=== PATIENT | male | born 1960 | race Caucasian/White ===

== ENCOUNTER 2017-05-23 19:55 | Emergency (ER) | payer OTHER ==
[2017-05-23 20:12] VITALS: PULSE 68; TEMP 98.1; BMI 27.9
[2017-05-23] MEDS ORDERED: IBUPROFEN 600 MG TABLET (FP) PO ONE ×2 (20:30→20:39)
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
[2017-05-23 20:43] VITALS: BP 159/74
== END 2017-05-23 20:46 | disposition home or self-care (01) ==
LOC: FER 19:55
DX: Z04.1 Encounter for examination and observation following transport accident (principal); V49.9XXA Car occupant (driver) (passenger) injured in unspecified traffic accident, initial encounter; Y93.89 Activity, other specified; Y92.410 Unspecified street and highway as the place of occurrence of the external cause; I10 Essential (primary) hypertension; E78.5 Hyperlipidemia, unspecified
CPT/HCPCS: 99283-25

== ENCOUNTER 2021-06-06 05:01 | Day surgery (SDC) | payer OTHER ==
[2021-06-01 15:29] VITALS: BMI 28.2
[2021-06-06 10:58] VITALS: TEMP 97.3
[2021-06-06 11:25] VITALS: BP 117/51; PULSE 46
== END 2021-06-06 11:43 | disposition home or self-care (01) ==
LOC: JASU-ENDO 05:01
PROVIDERS: ATTEND Internal Medicine Gastroenterology
PROC: 0DBL8ZX Excision of Transverse Colon, Via Natural or Artificial Opening Endoscopic, Diagnostic (ICD-10-PCS; principal; 2021-06-06 09:30)
DX: Z12.11 Encounter for screening for malignant neoplasm of colon (principal); D12.3 Benign neoplasm of transverse colon; K57.30 Diverticulosis of large intestine without perforation or abscess without bleeding; K64.8 Other hemorrhoids; I25.10 Atherosclerotic heart disease of native coronary artery without angina pectoris; I10 Essential (primary) hypertension; Z80.0 Family history of malignant neoplasm of digestive organs
CPT/HCPCS: 88305-TC

== ENCOUNTER 2022-03-19 19:31 | Emergency (ER) | payer OTHER ==
[2022-03-19 19:47] VITALS: BP 161/91; PULSE 79; RESP 16; TEMP 98; BMI 29.0
[2022-03-19] MEDS ORDERED: IBUPROFEN 400 MG TABLET (FP) PO ONE ×2 (20:34→20:36)
== END 2022-03-19 21:30 | disposition home or self-care (01) ==
LOC: FER 19:31
DX: S93.601A Unspecified sprain of right foot, initial encounter (principal); W11.XXXA Fall on and from ladder, initial encounter
CPT/HCPCS: 73630-TC-RT-FY; 99283-25